=== PATIENT | female | born 1985 | race Caucasian/White ===

== ENCOUNTER → 2024-11-27 08:29 | Outpatient (CLI) | payer OTHER, SELFPAY ==
--- NOTE | 2024-11-27 08:32 | DI.US.S_ITS ---
PROCEDURE: US PELVIC COMPLETE INDICATIONS: RT SHARP PELVIC PAIN DURING COITAL WITH BLEEDING 2 DAYS AGO TECHNIQUE: Real-time scanning was performed of the pelvic organs, with image documentation. Additional endovaginal scanning was necessary due to incomplete visualization of the adnexal and endometrial structures by transabdominal scanning. COMPARISON: None. FINDINGS: Uterus: Uterus is anteverted and normal in size at 7.4 x 4.3 x 3.8 cm. The myometrium is heterogeneous. Intrauterine device is seen in expected position. Ovaries: The right ovary measures 4.6 x 3.5 x 2.1 cm, with a calculated ovarian volume of 17.9 cc. The left ovary measures 3.9 x 1.6 x 1.2 cm, with a calculated ovarian volume of 3.7 cc. The ovaries have a normal sonographic appearance. Less than 12 follicles can be seen in each ovary. A right ovarian complex cystic lesion is seen measuring 4.2 x 3.2 x 1 7 cm with an echogenic solid-appearing portion. No vascularity is seen. Other: No pathologic free abdominal or pelvic fluid. IMPRESSION: Complex cystic and solid mass in the right ovary measures up to 4.2 cm without internal vascularity, suspicious for a benign or malignant ovarian neoplasm. Recommend OBGYN consultation. Consider MRI of the pelvis with and without contrast for further evaluation. Approved by: Maikol Leyva M.D. on 11/27/2024 at 20:35
== END ==
PROVIDERS: Referring Provider Student in an Organized Health Care Education/Training Program; Visit Provider Student in an Organized Health Care Education/Training Program
DX: Z30.431 Encounter for routine checking of intrauterine contraceptive device (principal); N83.9 Noninflammatory disorder of ovary, fallopian tube and broad ligament, unspecified
CPT/HCPCS: 76830; 76856

== ENCOUNTER → 2024-12-01 08:56 | Outpatient (CLI) | payer OTHER, SELFPAY ==
[2024-12-01 09:54] LABS: Lactate Dehydrogenase 145 U/L (120-246)
[2024-12-01 10:22] LABS: Cancer Antigen 125 8.2 U/mL (0-35)
[2024-12-01 10:23] LABS: Estradiol, Total 27.2 pg/mL
[2024-12-02 07:09] LABS: Alpha Fetoprotein 1.8 ng/mL (0.0-6.4)
[2024-12-03 10:28] LABS: Human Epididymis Prot 4 47.8 pmol/L (0.0-61.2)
[2024-12-04 05:09] LABS: Inhibin A, Ultrasensitive 4.8 pg/mL (.)
[2024-12-04 11:36] LABS: Inhibin B 69.4 pg/mL (.)
== END ==
PROVIDERS: Referring Provider Student in an Organized Health Care Education/Training Program; Visit Provider Student in an Organized Health Care Education/Training Program
DX: N83.291 Other ovarian cyst, right side (principal)
CPT/HCPCS: 36415; 82105; 82670; 83520; 83615; 86304; 86305; 86336

== ENCOUNTER → 2024-12-07 07:59 | Outpatient (CLI) | payer OTHER, SELFPAY ==
--- NOTE | 2024-12-07 08:43 | DI.MRI.S_ITS ---
PROCEDURE: MR PELVIS WO/W CON INDICATIONS: Evaluate R ovarian cyst TECHNIQUE: Coronal HASTE, sagittal breath-hold T2 FSE; axial T1 FSE with and without fat saturation through the pelvis. Optional long- and short-axis uterine nonbreath-hold T2 FSE through the uterus. Sagittal or axial dynamic VIBE during administration of contrast. Post-contrast axial or coronal VIBE/2-D FLASH with fat saturation from the iliac crests to the symphysis. Optional diffusion weighted imaging and ADC may be performed. 20 cc ProHance IV contrast. COMPARISON: [facility], US, US PELVIC COMPLETE, 11/27/2024, 8:52. FINDINGS: Image quality: Excellent. Uterus: Uterus is anteverted and normal in size measuring 6.9 cm. Endometrium is normal in thickness measuring 5 mm. IUD centered in the endometrial cavity. Junctional zone is normal in thickness at 12 mm or less. No fibroids seen. Adnexa: Right ovarian cyst measuring 1.7 x 1.1 cm, (/). (Previously measured at 4.6 x 3.5 x 2.1 cm on pelvic ultrasound 11/27/2024. The cyst is T2 hyperintense with a T2 hypointense/intrinsic T1 hyperintense mural nodule or debris. No enhancement appreciated. No restricted diffusion seen. There are multiple small ovarian follicles bilaterally. Urinary system: Bladder wall is normal in thickness. Distal ureters are non distended. Urethra appears normal in morphology. Nodes and vessels: No pelvic or inguinal adenopathy by size criteria. Iliac vessels are normal in size. Bowel and peritoneum: No pathologic free pelvic fluid. Inferior colon and small bowel loops are normal in caliber. Soft tissues: No inguinal hernias. No findings of pelvic floor incompetence in the absence of provocation. Bones: Marrow demonstrates normal overall signal. IMPRESSION: 1. Right ovarian cyst measuring 1.7 cm with suspected clot. This appears decreased in size compared to the prior ultrasound. No suspicious enhancement is appreciated. -As a precaution recommend follow-up pelvic ultrasound in 6-12 weeks. 2. Endometrium measures 5 mm. IUD is centered in the endometrial cavity. Dictated by: Jagjit Murphy M.D. on 12/07/2024 at 10:44 Approved by: Jagjit Murphy M.D. on 12/07/2024 at 11:02
== END ==
PROVIDERS: Referring Provider Student in an Organized Health Care Education/Training Program; Visit Provider Student in an Organized Health Care Education/Training Program
DX: N83.291 Other ovarian cyst, right side (principal); R10.2 Pelvic and perineal pain; Z97.5 Presence of (intrauterine) contraceptive device
CPT/HCPCS: 72197; A9579

== ENCOUNTER → 2025-05-01 08:03 | Outpatient (CLI) | payer OTHER, SELFPAY | PROVIDERS: Visit Provider Registered Nurse | DX: R30.0 Dysuria (principal) | CPT/HCPCS: 87086 ==

== ENCOUNTER → 2025-05-18 07:45 | Outpatient (CLI) | payer OTHER, SELFPAY | PROVIDERS: Visit Provider Chiropractor | DX: R30.0 Dysuria (principal) | CPT/HCPCS: 87086 ==